=== PATIENT | female | born 1945 | race Caucasian/White ===

== ENCOUNTER 2018-10-25 08:44 | Inpatient (IN) ==
--- NOTE | 2018-10-18 11:01 | PAT Medication Instructions ---
Medication Instructions Date of Service October 18, 2018 Home Medications amlodipine 5 mg PO QAM atorvastatin 10 mg PO QAM calcium carbonate-vitamin D3 1 cap PO BID cephalexin 500 mg PO BID clopidogrel 75 mg PO QAM esomeprazole magnesium 40 mg PO QAM glipizide 2.5 mg PO QAM metformin 500 mg PO BID metoprolol succinate 50 mg PO QAM mirabegron [Myrbetriq] 25 mg PO QPM multivitamin 1 tab PO QAM ranitidine HCl 300 mg PO HS sertraline 50 mg PO QPM Continue as directed cephalexin 500 mg PO BID ASK your prescriber and surgeon clopidogrel 75 mg PO QAM DO NOT take the morning of surgery glipizide 2.5 mg PO QAM metformin 500 mg PO BID multivitamin 1 tab PO QAM Take morning of surgery With a small sip of water, OTHERWISE NOTHING TO EAT OR DRINK AFTER MIDNIGHT: amlodipine 5 mg PO QAM atorvastatin 10 mg PO QAM esomeprazole magnesium 40 mg PO QAM metoprolol succinate 50 mg PO QAM Take evening before surgery calcium carbonate-vitamin D3 1 cap PO BID metformin 500 mg PO BID mirabegron [Myrbetriq] 25 mg PO QPM ranitidine HCl 300 mg PO HS sertraline 50 mg PO QPM Other Notes If you have any questions please call us at [phone] or [phone] or [phone] or [phone]
--- NOTE | 2018-10-18 12:32 | Anesthesiology Consultation ---
Date of Service October 18, 2018 Assessment & Plan (1) Encounter for pre-operative examination: PCP clearance (Baldo) 10/20 = "Patient is medically cleared for surgery. No contraindication for R shoulder surgery at this time." Chart Review Chart Review: Acceptable Risk for Surgery and Patient seen in Pre Admission Testing Teaching & Discussion Instructed NPO after midnight before surgery, except medications with 15 cc of water. Medication instructions provided according to the PAT guidelines. History Surgery Operation Date: 10/25/18 14:00 Proposed Procedures p Right Reversed Total Shoulder Arthroplasty, Biceps Tenodesis - Cayetano Ruth MD Height/Weight Height: 4 ft 11 in Weight: 54.431 kg Allergies Allergy/AdvReac Type Severity Reaction Status Date / Time Penicillins Allergy Mild Unknown Verified 10/13/18 11:11 Medications Home Medications Medication Instructions Recorded Confirmed Last Taken amlodipine 5 mg PO QAM 10/13/18 10/13/18 Unknown atorvastatin 10 mg PO QAM 10/13/18 10/13/18 Unknown calcium carbonate-vitamin D3 1 cap PO BID 10/13/18 10/13/18 Unknown [Calcium 600 + D(3)] cephalexin 500 mg PO BID 10/13/18 10/13/18 Unknown clopidogrel 75 mg PO QAM 10/13/18 10/13/18 Unknown esomeprazole magnesium 40 mg PO QAM 10/13/18 10/13/18 Unknown glipizide 2.5 mg PO QAM 10/13/18 10/13/18 Unknown metformin 500 mg PO BID 10/13/18 10/13/18 Unknown metoprolol succinate 50 mg PO QAM 10/13/18 10/13/18 Unknown mirabegron [Myrbetriq] 25 mg PO QPM 10/13/18 10/13/18 Unknown multivitamin 1 tab PO QAM 10/13/18 10/13/18 Unknown ranitidine HCl 300 mg PO HS 10/13/18 10/13/18 Unknown sertraline 50 mg PO QPM 10/13/18 10/13/18 Unknown Past Medical History Medical History 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 Some speech impairment/cognitive decline--per , were told by [facility] specialist some cognitive decline is to be expected with SCA-6 Depression Diabetes mellitus, type 2 Difficulty swallowing liquids PE - CHOKES ON FOOD - unknown if 2/2 CVA or SCA disorder. Falls frequently PER - D/T ATAXIA ISSUES - patient is primarily wheelchair bound, occasionally stands with support. 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 Onset at age 40. Has seen a neurologist with [facility]. is primary programmer or analyst. Requires assistance with all ADLs. Disease manifests as ataxia, memory and cognitive deficits. Stroke PER - CVA VS. TIA SEVERAL YEARS AGO-hard to assess if long-term deficits 2/2 SCA disorder. On Plavix. Exercise / Class Metabolic Activity IV < 2 Limit ADL/Bedbound (Requires help with toileting, transferring, requires wheelchair most of the time, can stand for short time if supported) Past Family History Family History Other Unknown family medical history Past Surgical History Surgical History History of lumbar surgery Fusion per Hx of cervical discectomy Hx of hysterectomy Past Anesthesia History No Hx of Anesthesia Complications and No Family Hx of Anesthesia Complications History of PONV No Hx of PONV and Hx of Motion Sickness Social History Smoking Status: Never smoker Do You Dip or Chew Tobacco: No Hx Alcohol Use: No Hx Substance Use: No Review of Systems Pt denies any recent chest pain, shortness of breath, palpitations, fever or URI. +mild cough, +UTI, being treated for by PCP Physical Exam Vital Signs BP: 149/93 P: 70bpm SPO2: 95% RA T: 98.4 F R: 16 ENMT Mouth: + dentures (upper); no chipped teeth and no loose teeth Thyromental Distance: < 3.5 Finger Breadths (3) Mallampati Class: II Neck normal visual inspection and + short neck; neck extension not limited Respiratory normal respiratory effort Auscultation: lungs clear to auscultation bilaterally Cardiovascular Rate/Rhythm: regular rate and regular rhythm Heart Sounds: no murmur Vessels: no carotid bruit Extremities: no edema Testing Laboratory Results 10/18/18 12:58 10/18/18 12:58 PT 10.5 Seconds (9.0-12.0) 10/18/18 12:58 INR 1.0 (0.9-1.1) 10/18/18 12:58 APTT 24.8 Seconds (21.0-31.0) 10/18/18 12:58 Hemoglobin A1c 5.9 % (4.5-5.6) H 10/18/18 12:58 Urine Color Yellow 10/18/18 12:58 Urine Appearance Clear (Clear) 10/18/18 12:58 Urine pH 5.5 (4.5-7.5) 10/18/18 12:58 Ur Specific Dyer 1.021 (1.000-1.030) 10/18/18 12:58 Urine Protein Negative (Negative) 10/18/18 12:58 Urine Glucose (UA) 1+ (Negative) H 10/18/18 12:58 Urine Ketones Negative (Negative) 10/18/18 12:58 Urine Nitrite Negative (Negative) 10/18/18 12:58 Ur Leukocyte Esterase Negative (Negative) 10/18/18 12:58 Blood Type B Positive 10/18/18 12:58 Antibody Screen NEGATIVE 10/18/18 12:58 *surgeon's office flagged re: glucose of 237 Electrocardiogram Date: 10/18/18 Findings: + NSR @ (64) Minimal voltage criteria for LVH, may be normal variant. No significant change from 2008 EKG. Chest X-Ray Date: 10/18/18 FINDINGS: Cardiomediastinal and hilar silhouettes are within normal limits. No pneumothorax, large pleural effusion, focal airspace consolidation or overt pulmonary edema. Mild blunting of the left costophrenic angle is likely secondary to atelectasis. Degenerative changes of the shoulders and spine. Cholecystectomy. IMPRESSION: No acute process.
--- NOTE | 2018-10-18 13:44 | XRay Report ---
XR chest Pre-admission PA/Lat HISTORY: 73 years-old Female pat preoperative exam. No acute chest complaints COMPARISON: CT abdomen and pelvis 05/26/2008 TECHNIQUE: Portable upright AP view of the chest FINDINGS: Cardiomediastinal and hilar silhouettes are within normal limits. No pneumothorax, large pleural effu gab, focal airspace consolidation or overt pulmonary edema. Mild blunting of the left costophrenic a ngle is likely secondary to atelectasis. Degenerative changes of the shoulders and spine. Cholecystec letitia. IMPRESSION: No acute process. The above report was generated using voice recognition software. It may contain grammatical, syntax o r spelling errors. Electronically signed by: Josh Brennan M.D. 10/18/2018 1:43 PM
[2018-10-18 14:58] LABS: Basophils # (auto) 0.04 K/uL (0-0.2); Basophils % (auto) 0.7 %; Eosinophils # (auto) 0.09 K/uL (0-0.5); Eosinophils % (auto) 1.6 %; Hematocrit (blood only) 38.9 % (37-47); Hemoglobin 12.7 g/dL (12.0-16.0); Immature Granulocytes # (auto) 0.03 K/uL (0.00-0.02); Immature Granulocytes % (auto) 0.5 %; Lymphocytes # (auto) 1.68 K/uL (1.2-3.4); Mean Corpuscular Hgb Conc 32.6 g/dL (32-36); Mean Corpuscular Volume 93.7 fL (80-100); Mean Platelet Volume 11.4 fL (7.4-10.4); Monocytes # (auto) 0.24 K/uL (0.11-0.59); Monocytes % (auto) 4.3 %; Neutrophils # (auto) 3.52 K/uL (1.4-6.5); Neutrophils % (auto) 62.9 %; Platelet Count 227 K/uL (130-400); RDW Standard Deviation 44.2 fL (36.4-46.3); Red Blood Count 4.15 M/uL (4.2-5.4)
[2018-10-18 15:03] LABS: Appearance Urine Clear (Clear); Bilirubin Urine Negative (Negative); Blood Urine Negative (Negative); Color Urine Yellow; Glucose Urine UA 1+ (Negative); Ketones Urine Negative (Negative); Leukocyte Esterase Urine Negative (Negative); Nitrite Urine Negative (Negative); Protein Urine Negative (Negative); Specific Gravity Urine 1.021 (1.000-1.030); Urobilinogen Urine Negative (Negative); pH Urine 5.5 (4.5-7.5)
[2018-10-18 15:04] LABS: Albumin Level 3.5 gm/dl (3.4-5.0); BUN Creatinine Ratio 14.8 (10-20); Calcium 9.1 mg/dl (8.5-10.1); Creatinine Clr Calc Pharmacy 38.1 ml/min; Est GFR (African American) 67.1; Est GFR (Non-African American) 57.9; Potassium 4.5 mmol/L (3.5-5.1)
[2018-10-18 15:09] LABS: Partial Thromboplastin Ratio 0.9; Partial Thromboplastin Time 24.8 Seconds (21.0-31.0); Prothrombin Time 10.5 Seconds (9.0-12.0)
[2018-10-19 06:05] LABS: Estimated Average Glucose 123 mg/dl; Hemoglobin A1C 5.9 % (4.5-5.6)
--- NOTE | 2018-10-24 21:21 | History and Physical Report ---
DATE OF ADMISSION: 10/25/2018 CHIEF COMPLAINT: Chronic right shoulder pain and weakness. HISTORY OF PRESENT ILLNESS: This is a 73-year-old female patient of Dr. Ruth's c/o chronic right shoulder pain long standing now progressively getting worse. The patient has multiple falls in the recent years and MRI has confirmed rotator cuff tendinopathy and arthritis. The patient wished to proceed with a right reverse shoulder arthroplasty and biceps tenodesis. PAST MEDICAL HISTORY: HTN, anxiety, TIA, DM OA, spine problems, neck problems, acid reflux. PAST SURGICAL HISTORY: Back surgery. FAMILY HISTORY: Noncontributory. REVIEW OF SYSTEMS: Chronic right shoulder pain and weakness. Otherwise, denies any shortness of breath, chest pain, nausea, vomiting or any other joint complaints.. MEDICATIONS: 1. Nexium 40 mg daily. 2. Glipizide 2.5 mg daily. 3. metoprolol 50mg daily. 4. Amlodipine 10 mg daily. 5. Atorvastatin 10 mg daily. 6. Multivitamin daily. 7. Plavix 75 mg daily. 8. Calcium 600 with D daily. 9. Metformin 500 mg. 10. Keflex 500 mg daily. 11. Ranitidine 300 mg daily. 12. Sertraline 50 mg daily. 13. Myrbetriq 25 mg daily. ALLERGIES: PENICILLIN, UNKNOWN REACTION. PHYSICAL EXAMINATION: GENERAL: Well-developed, well-nourished 73-year-old female in no acute distress. She is alert and oriented x3 and pleasant. HEENT: Normocephalic, atraumatic. Extraocular motions are intact. Pupils are equal and reactive to light. HEART: Regular rate and rhythm, no murmurs are appreciated. LUNGS: Clear. ABDOMEN: Soft and nontender, bowel sounds present. EXTREMITIES: Right shoulder reveals active range of motion to 130, passively to 160. She has 3/5 strength globally. She has crepitation with passive range of motion. NEUROLOGIC: Neurovascularly, she is intact in her right upper extremity. DIAGNOSES: Right shoulder chronic rotator cuff tendinopathy, hypertension, anxiety, history of transient ischemic attack, diabetes mellitus, osteoarthritis, spine problems, neck problems and acid reflux. PLAN: The patient was advised of her diagnoses. Indications, risks, benefits, postop course have all been reviewed. Wished to proceed with a right reversed total shoulder arthroplasty and biceps tenodesis. consent and clearances will be obtained. CANDACED
[~2018-10-25 08:44] MED LIST: ACETAMINOPHEN 500 MG TAB PO SCH; CeleBREX 200 MG CAP PO SCH; FAMOTIDINE 20 MG TAB PO SCH; GABAPENTIN 300 MG CAP PO SCH; LR 15ML/HR IV SCH; METOCLOPRAMIDE HCL 10 MG TABLET PO SCH; ROPIVACAINE 0.5% 5 MG/ML 30 ML VIAL ONE; VANCOMYCIN HCL 1,000 MG/270 ML BAG IV SCH; dexAMETHasone 4 MG TAB PO SCH
--- NOTE | 2018-10-25 09:31 | History & Physical Bridge Note ---
Date of Service October 25, 2018 History & Physical Bridge Note I have examined the patient, reviewed the History & Physical and in the interval since the performance of the History & Physical I have noted the following changes of clinical significance: no changes noted
[2018-10-25] MEDS ORDERED: LIDOCAINE HCL 2% 2 ML VIAL/AMP(20MG/ML) INFIL ONE (09:51)
[2018-10-25] MEDS ORDERED: BACITRACIN INJ 50,000 UNIT VIAL ONE (09:51)
[2018-10-25] MEDS ORDERED: fentaNYL citrate 100 MCG/2 ML VIAL ONE (09:52)
[2018-10-25] MEDS ORDERED: PROPOFOL IV EMULSION 10 MG/ML 20 ML VIAL IV ONE (09:52)
[2018-10-25] MEDS ORDERED: MIDAZOLAM HCL 1 MG/ML 2ML VIAL ONE (09:52)
[2018-10-25] MEDS ORDERED: ROCURONIUM BROMIDE 10 MG/ML 5 ML VIAL ONE ×3 (09:53→13:05)
[2018-10-25] MEDS ORDERED: ONDANSETRON INJ 2 MG/ML 2 ML VIAL ONE (09:54)
[2018-10-25] MEDS ORDERED: DEXAMETHASONE SOD INJ 4 MG/ML VIAL ONE (09:54)
[2018-10-25] MEDS ORDERED: ONDANSETRON INJ 2 MG/ML 2 ML VIAL IV PRN ×2 (10:49→16:58)
[2018-10-25] MEDS ORDERED: fentaNYL citrate 100 MCG/2 ML VIAL IV PRN (10:49)
[2018-10-25] MEDS ORDERED: ePHEDrine sulfate 50 MG/ML AMP IV PRN (10:49)
[2018-10-25] MEDS ORDERED: ATROPINE SULFATE 0.1 MG/ML 10ML SYR IV PRN (10:49)
[2018-10-25] MEDS ORDERED: NEOSTIGMINE METHYLSULFATE 5 MG/5 ML SYR ONE (12:27)
[2018-10-25] MEDS ORDERED: GLYCOPYRROLATE 0.2 MG/ML VIAL ONE (12:27)
[2018-10-25] MEDS ORDERED: ePHEDrine sulfate 50 MG/ML AMP ONE (14:09)
--- NOTE | 2018-10-25 14:42 | Post Operative Brief Note ---
Immediate Post Op Note v1 Date of Surgery October 25, 2018 Pre & Post Diagnosis Operation Date: 10/25/18 11:30 Pre-Op Diagnosis: Right Shoulder end stage osteoarthritic chronic rotator cuff tear and biceps tendinopathy Post-Op Diagnosis: same loose body biceps tendon sheath Procedure Operation Date: 10/25/18 11:30 Actual Procedures p Right Reversed Total Shoulder Arthroplasty, Biceps Tenodesis(Right),removal loose body - Cayetano Ruth MD Surgeon Cayetano Ruth MD Central Office Equipment Installer Fabiano ROGERS Estimated Blood Loss 75 Findings Consistent with Post-Op Diagnosis Specimens humeral head Drains Hemovac Drain Anesthesia Type General Regional Disposition Accompanied Patient To Recovery: No Disposition: Recovery Room Overlapping Procedure I was present for: the critical portions of procedure.
--- NOTE | 2018-10-25 15:33 | XRay Report ---
RIGHT SHOULDER 2 VIEWS CLINICAL HISTORY: Postoperative examination. FINDINGS: 2 portable views of the right shoulder are obtained. The skeletal structures are osteopenic . A right shoulder arthroplasty is in near-anatomic alignment. No acute fracture is seen. Productive degenerative change is noted at the acromioclavicular joint. There are expected postoperative finding s overlying the right shoulder including skin clips, subcutaneous gas, soft tissue swelling, and a waters rgical drain. The visualized right lung parenchyma appears clear. IMPRESSION: Expected postoperative findings status post right shoulder arthroplasty. No fracture is s een. Electronically signed by: Lj Rodriguez M.D. 10/25/2018 3:32 PM
[2018-10-25] MEDS ORDERED: MAGNESIUM HYDROXIDE SUSP 30 ML UDC PO PRN (16:58)
[2018-10-25] MEDS ORDERED: BISACODYL 10 MG SUPP PR PRN (16:58)
[2018-10-25] MEDS ORDERED: VANCOMYCIN CONSULT ACTIVE PRN (16:58)
[2018-10-25] MEDS ORDERED: HYDROmorphone INJ 0.5 MG/0.5 ML SYR IV PRN (16:58)
[2018-10-25] MEDS ORDERED: NALOXONE HCL 0.4 MG/1 ML VIAL/CARP IV PRN (16:58)
[2018-10-25] MEDS ORDERED: SODIUM CHLORIDE 0.9% 1000ML 1,000 ML IV SCH (16:58)
--- NOTE | 2018-10-25 19:40 | Anesthesiology Progress Note ---
Date of Service October 25, 2018 Anesthesia Post Procedure Vital Signs Vital Signs: Temp Pulse Pulse Pulse Pulse Resp BP 10/25/18 18:47 36.7 C 64 17 10/25/18 17:40 36.7 C 65 16 10/25/18 17:10 36.2 C L 65 15 10/25/18 16:40 36.5 C 58 L 14 10/25/18 16:15 56 L 15 10/25/18 16:05 36.2 C L 54 L 16 10/25/18 16:00 36.2 C L 57 L 19 116/63 10/25/18 15:56 55 L 18 10/25/18 15:55 54 L 17 123/64 10/25/18 15:51 60 17 115/61 10/25/18 15:50 55 L 18 10/25/18 15:46 69 27 H 10/25/18 15:45 56 L 19 129/66 10/25/18 15:40 56 L 19 118/65 10/25/18 15:35 56 L 18 131/69 10/25/18 15:31 58 L 27 H 10/25/18 15:30 59 L 18 131/69 10/25/18 15:25 60 19 141/78 H 10/25/18 15:21 64 19 10/25/18 15:20 65 19 131/70 10/25/18 15:15 66 20 128/70 10/25/18 15:10 67 17 138/71 10/25/18 15:06 68 17 10/25/18 15:05 68 18 139/77 10/25/18 15:00 70 19 131/77 10/25/18 14:56 72 20 10/25/18 14:55 36.1 C L 63 71 21 153/80 H 10/25/18 14:54 101 H 10/25/18 09:26 36.9 C 65 16 BP BP Pulse Ox 10/25/18 18:47 109/73 97 10/25/18 17:40 106/71 98 10/25/18 17:10 107/61 98 10/25/18 16:40 117/65 96 10/25/18 16:15 114/57 L 98 10/25/18 16:05 153/80 H 99 10/25/18 16:00 99 10/25/18 15:56 100 10/25/18 15:55 98 10/25/18 15:51 94 10/25/18 15:50 98 10/25/18 15:46 99 10/25/18 15:45 99 10/25/18 15:40 99 10/25/18 15:35 100 10/25/18 15:31 99 10/25/18 15:30 100 10/25/18 15:25 99 10/25/18 15:21 100 10/25/18 15:20 100 10/25/18 15:15 100 10/25/18 15:10 100 10/25/18 15:06 99 10/25/18 15:05 99 10/25/18 15:00 99 10/25/18 14:56 98 10/25/18 14:55 153/80 H 98 10/25/18 14:54 10/25/18 09:26 162/75 H 94 Pain Intensity Right Shoulder: Pain Intensity: 6 Transfer of Care Handoff Completed per policy Notes Mental Status: alert / awake / arousable Patient Amnestic to Procedure: Yes Nausea / Vomiting: adequately controlled Pain: adequately controlled Airway Patency, RR, SpO2: stable & adequate BP & HR: stable & adequate Hydration State: stable & adequate Anesthetic Complications: no major complications apparent
--- NOTE | 2018-10-25 19:51 | Operative Report ---
Post Operative Report Pre & Post Diagnosis Operation Date: 10/25/18 11:30 Pre-Op Diagnosis: Right shoulder end-stage osteoarthritis glenohumeral joint, chronic rotator cuff tear with rotator cuff arthropathy, biceps tenosynovitis Post-Op Diagnosis: Same including loose body biceps tendon sheath. Procedure Operation Date: 10/25/18 11:30 Actual Procedures p Right Reversed Total Shoulder Arthroplasty, Biceps Tenodesis(Right) including removal loose body- Cayetano Ruth MD Surgeon Cayetano Ruth MD Speedboat Driver Fabiano ROGERS Estimated Blood Loss 75 Findings Consistent with Post-Op Diagnosis Specimens Humeral head Drains 2 Hemovac Anesthesia Type General Regional Complications none Disposition Accompanied Patient To Recovery: No Disposition: Recovery Room Indications 73-year-old female with chronic right shoulder pain failed conservative management. X-rays and MRI demonstrates advanced osteoarthritis glenohumeral joint some pseudosubluxation of the shoulder. She has a large chronic rotator cuff tear and biceps tenosynovitis. Description of Procedure The patient was taken to the operating room and anesthetized under regional block and general anesthetic. The patient was positioned on the operating table in a 30 beachchair position with a towel roll under the medial border of the right scapula. The arm was draped free to be able to manipulate the shoulder as needed. The right upper extremity was prepped and draped in usual sterile fashion. Exam demonstrated mild obesity of the arm. Forward elevation to 130 degrees abduction to 80 degrees and external rotation to 35 degrees. An anterior deltopectoral approach was performed. A longitudinal incision was made in the deltopectoral interval. The skin was incised sharply. Subcutaneous flaps were elevated off the fascia. The cephalic vein was dissected out and retracted lateral with the deltoid. The clavipectoral fascia was divided at the lateral margin of the conjoined tendon and extended up to the CA ligament. The following findings were noted there was significant subacromial bursitis. The subscapularis tendon was intact the supraspinatus was torn retracted. There were large bone spurs near the supraspinatus attachment site. There was significant biceps tendinopathy including loose body about 6 mm diameter and a biceps tendon sheath. The upper centimeter of the pectoralis was released for inferior exposure. the biceps tendon was tenodesed to the pectoralis tendon with #2 FiberWire. The proximal biceps was resected. The subscapularis tendon was taken down off the lesser tuberosity using a subperiosteal dissection. A #1 Vicryl traction suture was placed into the free end of the subscapularis tendon and capsule. The subscapular muscle fibers were split longitudinally at the level of the circumflex vessels. The circumflex vessels were identified and tied off with silk ties and divided laterally. A Kitner elevator was used to free up the inferior fibers of the subscapularis off of the capsule. The axillary nerve was identified with a tug test and protected with a blunt Rebecca retractor between the nerve and the capsule. The subscapularis tendon was then taken down off of the lesser tuberosity subperiosteally and subperiosteal dissection was performed along the neck of the humerus as the arm is gradually actually rotated exposing the humeral head. Retractors were readjusted and the inferior osteophytes were all resected using an artist chisel. A Ho elevator was used to assist in releasing the capsule of the neck of the humerus. The capsule was divided with Leong scissors down to the glenoid released off the anterior glenoid and the rotator interval was released to meet the capsular release and a 360 release of the subscapularis was accomplished. A Fukuda retractor was placed into the joint retracting the humeral head posterior. Glenoid findings demonstrated grade 4 DJD upper superior aspect of the glenoid. The labrum and biceps tendon was resected. an anterior-inferior and posterior inferior capsular release were performed with electrocautery and a Ho elevator on bone with the axillary nerve protected inferiorly by the retractor. Attention was then taken to the humeral preparation. The cutting guide was placed into the humeral head. It was positioned at 20 of retroversion. Oscillating saw was used to resect the humeral head giving the cut above the level of the posterior rotator cuff insertion site. The humerus was then prepared for the stem. I used the ascend flex stem from [employer]. The sizing broaches were used followed by trial broaches up to a size 2B long which had the appropriate fit and fill. The appropriate sized cut protector was placed. The humerus was then retracted posterior to the glenoid. The glenoid was sized for a 25. The guide for the baseplate was positioned in a 10 inferior tilt and the central drill hole was made. The reamer for the 25 baseplate was used. The central drill was widened for the peg. The 25 aequalis CESPEDES-coated baseplate was impacted into position. The base plate was transfixed with superior and inferior locking screws and anterior and posterior compression screws with stable fixation. The fan reamer was used for the 36 millimeter glenoid sphere. After irrigation the 36 glenoid sphere was impacted onto the baseplate and the screw was tightened. Attention was taken back to the humerus. The cut protector was removed and the +0 high offset humeral tray trial was assembled to the trial stem rotated appropriately to get bony coverage and then screwed in position. A trial reduction was performed. A +6 trial insert demonstrated good stability and no shuck. The trials were removed. 3 drill holes are made into the harder bone in the bicipital groove area and 3 #5 FiberWire sutures were placed transosseously. The canal was irrigated with antibiotic solution with bacitracin. The final component was assembled. The final component was 2B long PTC ascend flex stem +0 high offset tray 36+6 poly-insert. This was then impacted into the humerus with a tight press-fit. It was reduced to the glenoid sphere. Stability was verified. Subscapularis was repaired with the #5 FiberWire sutures using Humberto- Piero suture technique. Lateral row soft tissue repair was performed with #2 FiberWire [id number] sutures. The pectoralis was repaired with #2 FiberWire [id number] sutures reinforcing the biceps tendon tenodesis. The arm was taken through a range of motion which demonstrated 120 degrees forward elevation 90 degrees abduction 20 degrees external rotation without tension on repair. The implant was stable through the range of motion tested. The wound was copiously irrigated. 2 Hemovac drains were placed. The deltopectoral interval was closed with [id number] #1 Vicryl sutures. The subcutaneous tissues were closed with 2-0 Vicryl sutures. The skin was closed with dylan. Sterile dressings were applied and a shoulder immobilizer. Fabiano ROGERS my physician butcher's assistant assisted in the procedure to the entire procedure including patient positioning arm positioning prepping and draping soft tissue retraction instrument management suture management and performed the subcutaneous and skin closure and will participate in the postoperative care of the patient. I attest to the content of the Intraoperative Record and any orders documented therein. Any exceptions are noted below.
[2018-10-25] MEDS ORDERED: GLUCOSE 40% GEL 15 GM TUBE PO PRN ×2 (20:14→21:17)
[2018-10-25] MEDS ORDERED: GLUCOSE 10 TABS/TUBE PO PRN ×2 (20:14→21:17)
[2018-10-25] MEDS ORDERED: DEXTROSE 50% 50 ML SYRINGE IV PRN ×2 (20:14→21:17)
[2018-10-25] MEDS ORDERED: CARBOHYDRATES FOR HYPOGLYCEMIA PO PRN ×2 (20:14→21:17)
[2018-10-25] MEDS ORDERED: GLUCAGON FOR INJ 1 MG VIAL SQ PRN ×2 (20:14→21:17)
[2018-10-25] MEDS ORDERED: INSULIN GLARGINE SOLOSTAR 100 UNITS/ML 3 ML PEN SC SCH (21:00)
[2018-10-25] MEDS ORDERED: VANCOMYCIN HCL 750 MG in SODIUM CHLORIDE 0.9% 250 ML IV SCH (21:00)
[2018-10-25] MEDS ORDERED: INSULIN ASPART 100 UNITS/ML 3 ML PEN SC SCH ×2 (21:00→21:20)
[2018-10-25] MEDS ORDERED: INSULIN GLARGINE SOLOSTAR 100 UNITS/ML 3 ML PEN SQ STA (21:15)
--- NOTE | 2018-10-25 21:56 | Hospitalist Consultation ---
Date of Consultation October 25, 2018 Assessment & Plan (1) Status post shoulder surgery: Final Assessment and Recommendations as follows : Encephalopathy Patient somewhat confused postop. ? Baseline Postop hypotension TIA as per records, spinocerebellar ataxia as per records Postop anemia DM2 on oral meds Postop hyperglycemia secondary to perioperative steroids Recent outpatient hemoglobin A1c for this month showed good control at 5.9 IVF bolus Check lactic acid Hold antihypertensives for now Trend H&H, transfuse PRBC if hemoglobin less than 8 (hx TIA as per records) basal insulin, ISS BG goal, 1 40-1 80, carb count coverage Hold parameters for neuropsychotropic meds for sedation and confusion DVT prophylaxis as per postop orthopedic orders Thank you very much for this consultation. Dr. So will follow patient's progress. History of Present Illness Reason for Consultation: Medical management Requesting Physician: Dr. Ruth/Fabiano Steward PA-C Attending Physician: Cayetano Ruth MD History of Present Illness PCP; Martínez Nickerson PA-C History obtained from patient and records. Limited history from patient secondary to postop disorientation and language barrier. Medical history significant for hypertension, hyperlipidemia, TIA as per records, spinocerebellar ataxia as per records, DM2 on oral meds, GERD. Recent confinement 2008 for colitis. Patient underwent right shoulder surgery today for osteoarthritis. Postop pain tolerable as per patient. Postop SBP currently 90s. Postop BSG is in the 200s. Medical History as above Surgical History : Back surgery, shoulder surgery, cholecystectomy, hysterectomy, section Family History : Could not be obtained Personal/Social history : Non-smoker, no EtOH intake, lives with Allergies Allergy/AdvReac Type Severity Reaction Status Date / Time Penicillins Allergy Mild Unknown Verified 10/13/18 11:11 Home Medications Home Medications Medication Instructions Recorded Confirmed Type amlodipine 5 mg PO QAM 10/13/18 10/25/18 History atorvastatin 10 mg PO QAM 10/13/18 10/13/18 History calcium carbonate-vitamin D3 1 cap PO BID 10/13/18 10/13/18 History [Calcium 600 + D(3)] cephalexin 500 mg PO BID 10/13/18 10/25/18 History clopidogrel 75 mg PO QAM 10/13/18 10/25/18 History esomeprazole magnesium 40 mg PO QAM 10/13/18 10/13/18 History glipizide 2.5 mg PO QAM 10/13/18 10/25/18 History metformin 500 mg PO BID 10/13/18 10/13/18 History metoprolol succinate 50 mg PO QAM 10/13/18 10/13/18 History mirabegron [Myrbetriq] 25 mg PO QPM 10/13/18 10/13/18 History multivitamin 1 tab PO QAM 10/13/18 10/13/18 History ranitidine HCl 300 mg PO HS 10/13/18 10/13/18 History sertraline 50 mg PO QPM 10/13/18 10/25/18 History Patient History Medical History 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 Some speech impairment/cognitive decline--per , were told by [facility] specialist some cognitive decline is to be expected with SCA-6 Depression Diabetes mellitus, type 2 Difficulty swallowing liquids PE - CHOKES ON FOOD - unknown if 2/2 CVA or SCA disorder. Falls frequently PER - D/T ATAXIA ISSUES - patient is primarily wheelchair bound, occasionally stands with support. 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 Onset at age 40. Has seen a neurologist with [facility]. is primary librarian helper. Requires assistance with all ADLs. Disease manifests as ataxia, memory and cognitive deficits. Stroke PER - CVA VS. TIA SEVERAL YEARS AGO-hard to assess if long-term deficits 2/2 SCA disorder. On Plavix. Surgical History History of lumbar surgery Fusion per Hx of cervical discectomy Hx of hysterectomy Family History Other Unknown family medical history Social History Preferred Language: Sinhala Communication Ability: Effective Beliefs That Will Affect Care: None Current Living Situation: Spouse Feels Safe at Home: Yes Safety Concerns: Feels Safe At This Time Smoking Status: Never smoker Do You Dip or Chew Tobacco: No Second Hand Exposure: No Hx Alcohol Use: No Hx Substance Use: No Review of Systems Review of Systems: Could not be reliably obtained Physical Exam Physical Exam: GENERAL: Comfortable, pleasant, disoriented, wane, no respiratory distress SKIN: Pallor , warm HEENT: pale palpebral conjunctivae, no ptosis, dry buccal mucosa NECK : Supple, short neck, no tenderness CHEST : Decreased effort , no tenderness HEART : RRR, no obvious murmurs ABDOMEN: Some distention, nontender EXTREMITIES : Sling on the right upper extremity , no LE swelling/tenderness NEUROLOGIC : Disoriented, slightly hard of hearing no facial asymmetry, gait and stance not assessed Results & Data Vital Signs (Past 12 Hours) Vital Signs Temp Pulse Pulse Pulse Resp BP BP 10/25/18 19:40 36.9 C 63 16 97/62 L 10/25/18 18:47 36.7 C 64 17 109/73 10/25/18 17:40 36.7 C 65 16 106/71 10/25/18 17:10 36.2 C L 65 15 107/61 10/25/18 16:40 36.5 C 58 L 14 117/65 10/25/18 16:15 56 L 15 10/25/18 16:05 36.2 C L 54 L 16 10/25/18 16:00 36.2 C L 57 L 19 116/63 10/25/18 15:56 55 L 18 10/25/18 15:55 54 L 17 123/64 10/25/18 15:51 60 17 115/61 10/25/18 15:50 55 L 18 10/25/18 15:46 69 27 H 10/25/18 15:45 56 L 19 129/66 10/25/18 15:40 56 L 19 118/65 10/25/18 15:35 56 L 18 131/69 10/25/18 15:31 58 L 27 H 10/25/18 15:30 59 L 18 131/69 10/25/18 15:25 60 19 141/78 H 10/25/18 15:21 64 19 10/25/18 15:20 65 19 131/70 10/25/18 15:15 66 20 128/70 10/25/18 15:10 67 17 138/71 10/25/18 15:06 68 17 10/25/18 15:05 68 18 139/77 10/25/18 15:00 70 19 131/77 10/25/18 14:56 72 20 10/25/18 14:55 36.1 C L 63 71 21 153/80 H 10/25/18 14:54 101 H BP Pulse Ox 10/25/18 19:40 97 10/25/18 18:47 97 10/25/18 17:40 98 10/25/18 17:10 98 10/25/18 16:40 96 10/25/18 16:15 114/57 L 98 10/25/18 16:05 153/80 H 99 10/25/18 16:00 99 10/25/18 15:56 100 10/25/18 15:55 98 10/25/18 15:51 94 10/25/18 15:50 98 10/25/18 15:46 99 10/25/18 15:45 99 10/25/18 15:40 99 10/25/18 15:35 100 10/25/18 15:31 99 10/25/18 15:30 100 10/25/18 15:25 99 10/25/18 15:21 100 10/25/18 15:20 100 10/25/18 15:15 100 10/25/18 15:10 100 10/25/18 15:06 99 10/25/18 15:05 99 10/25/18 15:00 99 10/25/18 14:56 98 10/25/18 14:55 153/80 H 98 10/25/18 14:54 Laboratory Results Laboratory Results WBC 5.60 K/uL (4.8-10.8) 10/18/18 12:58 RBC 4.15 M/uL (4.2-5.4) L 10/18/18 12:58 Hgb 12.7 g/dL (12.0-16.0) 10/18/18 12:58 Hct 38.9 % (37-47) 10/18/18 12:58 MCV 93.7 fL (80-100) 10/18/18 12:58 MCH 30.6 pg (25-34) 10/18/18 12:58 MCHC 32.6 g/dL (32-36) 10/18/18 12:58 RDW Std Deviation 44.2 fL (36.4-46.3) 10/18/18 12:58 RDW Coeff of Debbie 13.0 % (11.5-14.5) 10/18/18 12:58 Plt Count 227 K/uL (130-400) 10/18/18 12:58 MPV 11.4 fL (7.4-10.4) H 10/18/18 12:58 Immature Gran % (Auto) 0.5 % 10/18/18 12:58 Neut % (Auto) 62.9 % 10/18/18 12:58 Lymph % (Auto) 30.0 % 10/18/18 12:58 Mora % (Auto) 4.3 % 10/18/18 12:58 Eos % (Auto) 1.6 % 10/18/18 12:58 Baso % (Auto) 0.7 % 10/18/18 12:58 Immature Gran # (Auto) 0.03 K/uL (0.00-0.02) H 10/18/18 12:58 Neut # (Auto) 3.52 K/uL (1.4-6.5) 10/18/18 12:58 Lymph # (Auto) 1.68 K/uL (1.2-3.4) 10/18/18 12:58 Mora # (Auto) 0.24 K/uL (0.11-0.59) 10/18/18 12:58 Eos # (Auto) 0.09 K/uL (0-0.5) 10/18/18 12:58 Baso # (Auto) 0.04 K/uL (0-0.2) 10/18/18 12:58 PT 10.5 Seconds (9.0-12.0) 10/18/18 12:58 INR 1.0 (0.9-1.1) 10/18/18 12:58 APTT 24.8 Seconds (21.0-31.0) 10/18/18 12:58 PTT Ratio 0.9 10/18/18 12:58 Sodium 145 mmol/L (136-145) 10/18/18 12:58 Potassium 4.5 mmol/L (3.5-5.1) 10/18/18 12:58 Chloride 109 mmol/L (98-107) H 10/18/18 12:58 Carbon Dioxide 30 mmol/L (21-32) 10/18/18 12:58 Anion Gap 6.0 (3-11) 10/18/18 12:58 BUN 14 mg/dl (7-18) 10/18/18 12:58 Creatinine 0.96 mg/dl (0.6-1.2) 10/18/18 12:58 Est Cr Clr Drug Dosing 38.1 ml/min 10/18/18 12:58 Est GFR ( Amer) 67.1 10/18/18 12:58 Est GFR (Non-Af Amer) 57.9 10/18/18 12:58 BUN/Creatinine Ratio 14.8 (10-20) 10/18/18 12:58 Glucose 237 mg/dl (70-99) H 10/18/18 12:58 POC Glucose 295 (70-99) H 10/25/18 20:58 Estimat Average Glucose 123 mg/dl 10/18/18 12:58 Hemoglobin A1c 5.9 % (4.5-5.6) H 10/18/18 12:58 Calcium 9.1 mg/dl (8.5-10.1) 10/18/18 12:58 Albumin 3.5 gm/dl (3.4-5.0) 10/18/18 12:58 Urine Color Yellow 10/18/18 12:58 Urine Appearance Clear (Clear) 10/18/18 12:58 Urine pH 5.5 (4.5-7.5) 10/18/18 12:58 Ur Specific [place] 1.021 (1.000-1.030) 10/18/18 12:58 Urine Protein Negative (Negative) 10/18/18 12:58 Urine Glucose (UA) 1+ (Negative) H 10/18/18 12:58 Urine Ketones Negative (Negative) 10/18/18 12:58 Urine Blood Negative (Negative) 10/18/18 12:58 Urine Nitrite Negative (Negative) 10/18/18 12:58 Urine Bilirubin Negative (Negative) 10/18/18 12:58 Urine Urobilinogen Negative (Negative) 10/18/18 12:58 Ur Leukocyte Esterase Negative (Negative) 10/18/18 12:58 Blood Type B Positive 10/18/18 12:58 Antibody Screen NEGATIVE 10/18/18 12:58
[2018-10-25 22:05] LABS: Hematocrit (blood only) 32.4 % (37-47); Hemoglobin 10.6 g/dL (12.0-16.0)
[2018-10-25] MEDS: MIRABEGRON ER 25 MG TAB PO SCH (22:07)
[2018-10-25] MEDS: SENNA 8.6 MG TAB PO SCH (22:07)
[2018-10-25] MEDS: SERTRALINE HCL 50 MG TABLET PO SCH (22:07)
[2018-10-25] MEDS: CALCIUM 600MG + VIT D 400 IU TAB PO SCH (22:07)
[2018-10-25] MEDS: ACETAMINOPHEN 500 MG TAB PO SCH (22:08)
[2018-10-25] MEDS: DOCUSATE SODIUM 100 MG CAP PO SCH (22:08)
[2018-10-25 22:23] LABS: BUN Creatinine Ratio 18.2 (10-20); Calcium 8.4 mg/dl (8.5-10.1); Est GFR (African American) 51.7; Est GFR (Non-African American) 44.6; Magnesium 1.8 mg/dl (1.8-2.4); Potassium 4.7 mmol/L (3.5-5.1)
[2018-10-25] MEDS ORDERED: SODIUM CHLORIDE 0.9% 1000ML 1,000 ML IV ONE (22:59)
[2018-10-25] MEDS ORDERED: MAGNESIUM SULFATE / D5W 1 GM/100 ML BAG IV ONE (23:15)
[2018-10-26] MEDS ORDERED: SODIUM CHLORIDE 0.9% 1000ML 1,000 ML IV SCH
[2018-10-26 00:53] LABS: Appearance Urine Clear (Clear); Bilirubin Urine Negative (Negative); Blood Urine Negative (Negative); Color Urine Yellow; Glucose Urine UA Trace (Negative); Ketones Urine Negative (Negative); Leukocyte Esterase Urine Negative (Negative); Nitrite Urine Negative (Negative); Protein Urine Negative (Negative); Specific Gravity Urine 1.015 (1.000-1.030); Urobilinogen Urine Negative (Negative)
[2018-10-26] MEDS: OXYCODONE HCL IR 5 MG TAB (IMMEDIATE RELEASE) PO PRN ×3 (01:03→19:27)
[2018-10-26 02:12] LABS: Basophils # (auto) 0.01 K/uL (0-0.2); Basophils % (auto) 0.1 %; Hematocrit (blood only) 27.8 % (37-47); Hemoglobin 9.2 g/dL (12.0-16.0); Immature Granulocytes # (auto) 0.03 K/uL (0.00-0.02); Immature Granulocytes % (auto) 0.3 %; Lymphocytes # (auto) 0.97 K/uL (1.2-3.4); Lymphocytes % (auto) 10.7 %; Mean Corpuscular Hgb Conc 33.1 g/dL (32-36); Mean Corpuscular Volume 90.6 fL (80-100); Mean Platelet Volume 10.6 fL (7.4-10.4); Monocytes # (auto) 0.89 K/uL (0.11-0.59); Monocytes % (auto) 9.8 %; Neutrophils % (auto) 79.1 %; Platelet Count 179 K/uL (130-400); RDW Coefficient of Variation 13.1 % (11.5-14.5); RDW Standard Deviation 42.9 fL (36.4-46.3); Red Blood Count 3.07 M/uL (4.2-5.4)
[2018-10-26] MEDS ORDERED: SODIUM CHLORIDE 0.9% 1000ML 1,000 ML IV ONE (02:37)
[2018-10-26] MEDS ORDERED: INSULIN GLARGINE SOLOSTAR 100 UNITS/ML 3 ML PEN SC STA (03:45)
[2018-10-26] MEDS: SODIUM CHLORIDE 0.9% 1000ML 1,000 ML IV SCH ×2 (03:57→05:41)
[2018-10-26] MEDS: INSULIN ASPART 100 UNITS/ML 3 ML PEN SC SCH ×5 (04:02→21:00)
[2018-10-26] MEDS: ACETAMINOPHEN 500 MG TAB PO SCH ×3 (05:41→21:00)
[2018-10-26] MEDS ORDERED: SODIUM CHLORIDE 0.9% 1000ML 1,000 ML IV STA (06:30)
[2018-10-26 06:38] LABS: Hematocrit (blood only) 27.4 % (37-47)
--- NOTE | 2018-10-26 08:19 | Orthopedic Progress Note ---
Date of Service October 26, 2018 Assessment & Plan (1) Status post shoulder surgery: POD #1, Right reversed TSA, Biceps tenodesis Limited PT/ OT D/C planning- Home w HEP As per medicine- Anemia 9.0 this AM, checking lactic acid- high at 2.3 this AM. Subjective POD #1, Pain is main issue, denies SOB, CP, N/V. Physical Exam Physical Exam: Right shoulder dressings c/d/i, no drainage, fingers mobile, sling in tact. Results & Data Vital Signs (Past 12 Hours) Vital Signs Temp Pulse Resp BP Pulse Ox 10/26/18 07:15 36.7 C 63 16 109/62 98 10/26/18 04:07 36.6 C 68 15 109/69 96 10/26/18 02:05 37.1 C 66 15 97/62 L 96 10/25/18 23:36 36.7 C 65 15 92/59 L 96
--- NOTE | 2018-10-26 08:27 | Anesthesiology Progress Note ---
Date of Service October 26, 2018 Anesthesia Post Procedure Vital Signs Vital Signs: Temp Pulse Pulse Pulse Pulse Resp BP 10/26/18 07:15 36.7 C 63 16 10/26/18 04:07 36.6 C 68 15 10/26/18 02:05 37.1 C 66 15 10/25/18 23:36 36.7 C 65 15 10/25/18 19:40 36.9 C 63 16 10/25/18 18:47 36.7 C 64 17 10/25/18 17:40 36.7 C 65 16 10/25/18 17:10 36.2 C L 65 15 10/25/18 16:40 36.5 C 58 L 14 10/25/18 16:15 56 L 15 10/25/18 16:05 36.2 C L 54 L 16 10/25/18 16:00 36.2 C L 57 L 19 116/63 10/25/18 15:56 55 L 18 10/25/18 15:55 54 L 17 123/64 10/25/18 15:51 60 17 115/61 10/25/18 15:50 55 L 18 10/25/18 15:46 69 27 H 10/25/18 15:45 56 L 19 129/66 10/25/18 15:40 56 L 19 118/65 10/25/18 15:35 56 L 18 131/69 10/25/18 15:31 58 L 27 H 10/25/18 15:30 59 L 18 131/69 10/25/18 15:25 60 19 141/78 H 10/25/18 15:21 64 19 10/25/18 15:20 65 19 131/70 10/25/18 15:15 66 20 128/70 10/25/18 15:10 67 17 138/71 10/25/18 15:06 68 17 10/25/18 15:05 68 18 139/77 10/25/18 15:00 70 19 131/77 10/25/18 14:56 72 20 10/25/18 14:55 36.1 C L 63 71 21 153/80 H 10/25/18 14:54 101 H 10/25/18 09:26 36.9 C 65 16 BP BP Pulse Ox 10/26/18 07:15 109/62 98 10/26/18 04:07 109/69 96 10/26/18 02:05 97/62 L 96 10/25/18 23:36 92/59 L 96 10/25/18 19:40 97/62 L 97 10/25/18 18:47 109/73 97 10/25/18 17:40 106/71 98 10/25/18 17:10 107/61 98 10/25/18 16:40 117/65 96 10/25/18 16:15 114/57 L 98 10/25/18 16:05 153/80 H 99 10/25/18 16:00 99 10/25/18 15:56 100 10/25/18 15:55 98 10/25/18 15:51 94 10/25/18 15:50 98 10/25/18 15:46 99 10/25/18 15:45 99 10/25/18 15:40 99 10/25/18 15:35 100 10/25/18 15:31 99 10/25/18 15:30 100 10/25/18 15:25 99 10/25/18 15:21 100 10/25/18 15:20 100 10/25/18 15:15 100 10/25/18 15:10 100 10/25/18 15:06 99 10/25/18 15:05 99 10/25/18 15:00 99 10/25/18 14:56 98 10/25/18 14:55 153/80 H 98 10/25/18 14:54 10/25/18 09:26 162/75 H 94 Pain Intensity Right Shoulder: Pain Intensity: 6 Notes Mental Status: alert / awake / arousable Patient Amnestic to Procedure: No Nausea / Vomiting: adequately controlled Pain: adequately controlled Airway Patency, RR, SpO2: stable & adequate BP & HR: stable & adequate Hydration State: stable & adequate Neuraxial Anesthesia: was administered and sensory block resolved Anesthetic Complications: no major complications apparent and Pt Satisfied with anesthetic care
[2018-10-26 08:57] LABS: BUN Creatinine Ratio 17.5 (10-20); Calcium 7.3 mg/dl (8.5-10.1); Est GFR (African American) 81.1; Potassium 3.9 mmol/L (3.5-5.1)
[2018-10-26] MEDS ORDERED: AMLODIPINE BESYLATE 5 MG TAB PO SCH (09:00)
[2018-10-26] MEDS ORDERED: METOPROLOL SUCC 25MG EXT REL TAB PO SCH (09:00)
[2018-10-26] MEDS ORDERED: METOPROLOL SUCC 50MG EXT REL TAB PO SCH (09:00)
[2018-10-26] MEDS: ATORVASTATIN 10 MG TAB PO SCH (09:21)
[2018-10-26] MEDS: DOCUSATE SODIUM 100 MG CAP PO SCH ×2 (09:21→20:58)
[2018-10-26] MEDS: PANTOprazole 40 MG TAB PO SCH (09:21)
[2018-10-26] MEDS: MULTIVITAMIN TAB PO SCH (09:21)
[2018-10-26] MEDS: CALCIUM 600MG + VIT D 400 IU TAB PO SCH ×2 (09:21→20:58)
[2018-10-26] MEDS: CLOPIDOGREL BISULFATE 75 MG TAB PO SCH (09:22)
--- NOTE | 2018-10-26 10:13 | Hospitalist Progress Note ---
Date of Service October 26, 2018 Assessment & Plan (1) Status post shoulder surgery: POD#1 s/p procedure by Dr. Ruth Feeling better today, confusion has resolved Per ortho for pain control, wound care, anticoagulation and activities Monitor H&H (hgb of 9 today, pre-op 10.6). Continue incentive spirometry, PT/OT when appropriate Postop hypotension: Resolved with IV fluids, anti hypertensives held. Consider resuming tomorrow Elevated lactic acid: Initially 3.3 --> 2.8 --> 2.3 this morning Downtrending appropriately Will decrease LR to 100ml/hr TIA as per records, spinocerebellar ataxia as per records DM2 on oral meds: Postop hyperglycemia secondary to perioperative steroids Recent outpatient hemoglobin A1c for this month showed good control at 5.9 SSI per protocol DVT Ppx: per primary service Patient seen in collaboration with Dr. So. Please see addendum. Supervising Physician Co-Signing Physician Notes Attending Addendum: care coordinated with SUE Saucedo please refer to her notes for full details, I agree with her notes patient seen and examined, records reviewed by myself as well on exam, patient seen resting in bed, comfortable, in good spirits Right shoulder sore No chest pain, shortness of breath, dizziness, palpitations no other symptoms VS noted and reviewed oriented , not in distress, speaks in sentences with no effort nor accessory muscle use normal rate, regular rhythm, no murmurs clear breath sounds bilaterally non distended, soft, nontender no bipedal edema, erythema, warmth no neuro deficits WBC 9.1 Hg 9.0 Crea 0.82 ASSESSMENT AND PLAN Status post right shoulder arthroplasty Blood pressure improving, continue IV fluids Hold BP meds Elevated lactic acid Trending down, continue IV fluids other diagnoses and plan of care as per SUE Callejas notes Tommy So MD Subjective Patient seen and examined today. Some surgical site discomfort. No chest pain or shortness of breath. Ambulating well. Urinating without issue, passing flatus. No fever, chills, headache, nausea, vomiting, abdominal pain, dysuria, diarrhea. BP improved with IV fluids to 109/62. Review of Systems Review of Systems: At least ten systems reviewed and negative except as noted in the HPI. Physical Exam Physical Exam: General Appearance: WD/WN, no apparent distress, resting comfortably Head: normocephalic, atraumatic Eyes: normal inspection, PERRL, EOMI ENT: hearing grossly normal, pharynx normal (moist mucous membranes) Neck: supple, no JVD, no adenopathy Respiratory/Chest: lungs clear to auscultation. No wheezes, rales or rhonci. No respiratory distress or accessory muscle use Cardiovascular: regular rate, rhythm, no murmur, normal peripheral pulses Abdomen/GI: normal bowel sounds, soft, non-tender to palpation Extremities/Musculoskelatal: R shoulder in sling, distal RUE cap refill intact, strength intact. No calf tenderness, no pedal edema Neurologic/Psych: alert, normal mood/affect, oriented x 3 Skin: normal color, warm/dry Results & Data Vital Signs (Past 12 Hours) Vital Signs Temp Pulse Resp BP Pulse Ox 10/26/18 07:15 36.7 C 63 16 109/62 98 10/26/18 04:07 36.6 C 68 15 109/69 96 10/26/18 02:05 37.1 C 66 15 97/62 L 96 10/25/18 23:36 36.7 C 65 15 92/59 L 96 Laboratory Results Short CBC 10/25/18 10/26/18 10/26/18 Range/Units 21:56 02:03 06:26 WBC 9.10 (4.8-10.8) K/uL Hgb 10.6 L 9.2 L 9.0 L (12.0-16.0) g/dL Hct 32.4 L 27.8 L 27.4 L (37-47) % Plt Count 179 (130-400) K/uL BMP 10/25/18 10/26/18 21:56 06:26 Sodium 140 146 H Potassium 4.7 3.9 D Chloride 108 H 117 H Carbon Dioxide 26 23 BUN 22 H 14 Creatinine 1.19 0.82 D Glucose 287 H 150 H Calcium 8.4 L 7.3 L Liver Function 10/25/18 Range/Units 21:56 Albumin 3.0 L (3.4-5.0) gm/dl Urine 10/26/18 Range/Units 00:00 Urine Color Yellow Urine Appearance Clear (Clear) Urine pH 6.0 (4.5-7.5) Ur Specific [place] 1.015 (1.000-1.030) Urine Protein Negative (Negative) Urine Glucose (UA) Trace H (Negative)
[2018-10-26] MEDS: MIRABEGRON ER 25 MG TAB PO SCH (20:58)
[2018-10-26] MEDS: SENNA 8.6 MG TAB PO SCH (20:59)
[2018-10-26] MEDS: SERTRALINE HCL 50 MG TABLET PO SCH (20:59)
[2018-10-27 02:23] LABS: Hematocrit (blood only) 28.6 % (37-47); Hemoglobin 9.3 g/dL (12.0-16.0); Mean Corpuscular Hgb Conc 32.5 g/dL (32-36); Mean Corpuscular Volume 91.7 fL (80-100); Mean Platelet Volume 11.4 fL (7.4-10.4); Platelet Count 114 K/uL (130-400); RDW Coefficient of Variation 13.3 % (11.5-14.5); RDW Standard Deviation 44.5 fL (36.4-46.3); Red Blood Count 3.12 M/uL (4.2-5.4); White Blood Count 8.99 K/uL (4.8-10.8)
[2018-10-27 02:40] LABS: BUN Creatinine Ratio 14.2 (10-20); Calcium 8.1 mg/dl (8.5-10.1); Creatinine Clr Calc Pharmacy 47.3 ml/min; Est GFR (African American) 86.2; Est GFR (Non-African American) 74.4; Potassium 3.9 mmol/L (3.5-5.1)
[2018-10-27] MEDS: OXYCODONE HCL IR 5 MG TAB (IMMEDIATE RELEASE) PO PRN ×3 (03:08→18:27)
[2018-10-27] MEDS: ACETAMINOPHEN 500 MG TAB PO SCH ×3 (05:45→21:39)
--- NOTE | 2018-10-27 08:12 | Orthopedic Progress Note ---
Date of Service October 27, 2018 Assessment & Plan (1) Status post shoulder surgery: POD #2, Right reversed TSA, Biceps tenodesis Limited PT/ OT D/C planning- Home w HEP today As per medicine. Subjective POD #2, No chest pain or shortness of breath. No fever, chills, headache, nausea, vomiting, abdominal pain, dysuria, diarrhea. BP improved. Pain is controlled well. Physical Exam Physical Exam: Right shoulder incision c/d/i, no erythema, fingers mobile, sling in tact. Confusion resolved this AM, A&Ox3. Results & Data Vital Signs (Past 12 Hours) Vital Signs Temp Pulse Pulse Resp BP Pulse Ox 10/27/ 07:42 36.7 C 75 17 139/84 98 10/26/18 23:22 37.3 C 76 16 165/73 H 93
[2018-10-27] MEDS: MULTIVITAMIN TAB PO SCH (08:48)
[2018-10-27] MEDS: DOCUSATE SODIUM 100 MG CAP PO SCH ×2 (08:48→21:38)
[2018-10-27] MEDS: ATORVASTATIN 10 MG TAB PO SCH (08:48)
[2018-10-27] MEDS: CALCIUM 600MG + VIT D 400 IU TAB PO SCH ×2 (08:48→21:38)
[2018-10-27] MEDS: CLOPIDOGREL BISULFATE 75 MG TAB PO SCH (08:49)
[2018-10-27] MEDS: PANTOprazole 40 MG TAB PO SCH (08:49)
[2018-10-27] MEDS: INSULIN ASPART 100 UNITS/ML 3 ML PEN SC SCH ×4 (09:04→21:24)
[2018-10-27] MEDS: INSULIN GLARGINE SOLOSTAR 100 UNITS/ML 3 ML PEN SQ SCH (09:15)
[2018-10-27] MEDS ORDERED: AMLODIPINE BESYLATE 5 MG TAB PO ONE (10:30)
--- NOTE | 2018-10-27 10:35 | Hospitalist Progress Note ---
Date of Service October 27, 2018 Assessment & Plan (1) Status post shoulder surgery: POD#2 s/p procedure by Dr. Ruth Feeling better today, confusion has resolved Per ortho for pain control, wound care, anticoagulation and activities Monitor H&H stable with hgb of 9.3 today (9 yesterday) Continue incentive spirometry, PT/OT when appropriate Ortho service plans to discharge home today with HEP Postop hypotension --> resolved Resolved with IV fluids Feeling dizzy today with repeat BP 170/90 Resumed home BP meds. Please recheck BP prior to discharge Elevated lactic acid --> resolved Initially 3.3 --> 2.8 --> 2.3 Downtrending appropriately with IV fluids TIA as per records, spinocerebellar ataxia as per records DM2 on oral meds Postop hyperglycemia secondary to perioperative steroids Recent outpatient hemoglobin A1c for this month showed good control at 5.9 SSI per protocol DVT Ppx: per primary service Patient seen in collaboration with Dr. So. Please see addendum. Thank you for this consultation. We will follow the patient with you during their hospital stay. You can reach a member of the [facility] Hospitalist Team 03/11 via pager @ [phone]. Supervising Physician Co-Signing Physician Notes Attending Addendum: delayed entry date of service as noted above care coordinated with SUE Saucedo please refer to her notes for full details, I agree with her notes patient seen and examined, records reviewed by myself as well on exam, patient seen resting in bed, comfortable, in good spirits pain well controlled denies chest pain, dyspnea, dizzines no new symptoms VS noted and reviewed oriented x2 , not in distress, speaks in sentences with no effort nor accessory muscle use normal rate, regular rhythm, no murmurs clear BS bilaterally non distended, soft, nontender sling over right arm no bipedal edema, erythema, warmth no neuro deficits Hg 9.3 ASSESSMENT AND PLAN Status post right shoulder arthroplasty stable overall Elevated lactic acid trended down other diagnoses and plan of care as per SUE Callejas notes Tommy So MD Subjective Patient seen and examined today in 384-1. Surgical site pain has improved. Feels dizzy when sitting up and BP is elevated at 170/90. Will resume BP meds. No chest pain or shortness of breath. Ambulating well. Urinating without issue, passing flatus. No fever, chills, headache, nausea, vomiting, abdominal pain, dysuria, diarrhea. Review of Systems Review of Systems: At least ten systems reviewed and negative except as noted in the HPI. Physical Exam Physical Exam: General Appearance: WD/WN, no apparent distress, resting comfortably Head: normocephalic, atraumatic Eyes: normal inspection, PERRL, EOMI ENT: hearing grossly normal, pharynx normal (moist mucous membranes) Neck: supple, no JVD, no adenopathy Respiratory/Chest: lungs clear to auscultation. No wheezes, rales or rhonci. No respiratory distress or accessory muscle use Cardiovascular: regular rate, rhythm, no murmur, normal peripheral pulses Abdomen/GI: normal bowel sounds, soft, non-tender to palpation Extremities/Musculoskelatal: R shoulder in sling, distal RUE cap refill intact, strength intact. No calf tenderness, no pedal edema Neurologic/Psych: alert, normal mood/affect, oriented x 3 Skin: normal color, warm/dry Results & Data Vital Signs (Past 12 Hours) Vital Signs Temp Pulse Pulse Resp BP Pulse Ox 10/27/18 07:42 36.7 C 75 17 139/84 98 10/26/18 23:22 37.3 C 76 16 165/73 H 93
[2018-10-27] MEDS ORDERED: METOPROLOL SUCC 25MG EXT REL TAB PO ONE (10:45)
[2018-10-27] MEDS: SENNA 8.6 MG TAB PO SCH (21:38)
[2018-10-27] MEDS: MIRABEGRON ER 25 MG TAB PO SCH (21:39)
[2018-10-27] MEDS: SERTRALINE HCL 50 MG TABLET PO SCH (21:39)
[2018-10-28] MEDS: ACETAMINOPHEN 500 MG TAB PO SCH ×3 (05:30→21:15)
[2018-10-28] MEDS: OXYCODONE HCL IR 5 MG TAB (IMMEDIATE RELEASE) PO PRN ×3 (06:23→20:02)
[2018-10-28] MEDS: INSULIN ASPART 100 UNITS/ML 3 ML PEN SC SCH ×4 (09:01→21:14)
[2018-10-28] MEDS: INSULIN GLARGINE SOLOSTAR 100 UNITS/ML 3 ML PEN SQ SCH (09:01)
[2018-10-28] MEDS: DOCUSATE SODIUM 100 MG CAP PO SCH ×2 (09:02→20:05)
[2018-10-28] MEDS: PANTOprazole 40 MG TAB PO SCH (09:02)
[2018-10-28] MEDS: CLOPIDOGREL BISULFATE 75 MG TAB PO SCH (09:02)
[2018-10-28] MEDS: MULTIVITAMIN TAB PO SCH (09:02)
[2018-10-28] MEDS: CALCIUM 600MG + VIT D 400 IU TAB PO SCH ×2 (09:02→20:05)
[2018-10-28] MEDS: ATORVASTATIN 10 MG TAB PO SCH (09:02)
--- NOTE | 2018-10-28 12:00 | Orthopedic Progress Note ---
Date of Service October 28, 2018 Assessment & Plan (1) Status post shoulder surgery: 73 yo female stable POD #3 s/p right reverse TSA 1. Med management 2. DVT prophylaxis- SCDs 3. PT/OT 4. D/C planning- referral made to [facility] Subjective Pt resting in bed, pain controlled, denies complaints Physical Exam Physical Exam: Dressing intact, fingers mobile, NVI Results & Data Vital Signs (Past 12 Hours) Vital Signs Temp Pulse Resp BP Pulse Ox 10/28/18 07:36 37.1 C 80 16 126/76 91 Laboratory Results 10/28/18 10/27/18 10/27/18 Range/Units 08:03 20:39 17:17 POC Glucose 193 H 192 H 181 H (70-99) 10/27/18 Range/Units 12:08 POC Glucose 169 H (70-99)
[2018-10-28] MEDS ORDERED: ACETAMINOPHEN 500 MG TAB PO PRN (16:58)
--- NOTE | 2018-10-28 17:14 | XRay Report ---
SINGLE VIEW CHEST CLINICAL HISTORY: Dyspnea. FINDINGS: An AP, portable, upright chest radiograph is compared to study dated 10/18/2018. The examinat ion is degraded by portable technique and patient rotation. The cardiomediastinal silhouette is unre markable. The lungs and pleural spaces are clear. No pneumothorax is seen. The skeletal structures ar e osteopenic. The bony thorax is grossly intact. Degenerative change is noted throughout the thoracic spine. A right shoulder arthroplasty is new from previous. There is overlying soft tissue edema and skin clips. Cholecystectomy clips are seen in the right upper quadrant. IMPRESSION: No active disease in the chest. Electronically signed by: Lj Rodriguez M.D. 10/28/2018 5:13 PM
[2018-10-28 18:16] LABS: Appearance Urine Clear (Clear); Bilirubin Urine Negative (Negative); Blood Urine Negative (Negative); Color Urine Yellow; Glucose Urine UA Negative (Negative); Ketones Urine Negative (Negative); Leukocyte Esterase Urine Negative (Negative); Nitrite Urine Negative (Negative); Protein Urine Negative (Negative); Specific Gravity Urine 1.014 (1.000-1.030); Urobilinogen Urine Negative (Negative); pH Urine 6.5 (4.5-7.5)
--- NOTE | 2018-10-28 19:17 | Hospitalist Progress Note ---
Date of Service October 28, 2018 Assessment & Plan (1) Status post shoulder surgery: POD#3 s/p procedure by Dr. Ruth Blood pressure stable overall Hemoglobin stable at 9.3 Positive febrile episode this afternoon No clear focus of infection, will order chest x-ray, urinalysis, blood cultures x2 Monitor fever curve Postop hypotension --> resolved Resolved with IV fluids Usual blood pressure medications resumed, blood pressure stable overall Elevated lactic acid --> resolved Initially 3.3 --> 2.8 --> 2.3 TIA as per records, spinocerebellar ataxia as per records DM2 on oral meds Postop hyperglycemia secondary to perioperative steroids Recent outpatient hemoglobin A1c for this month showed good control at 5.9 SSI per protocol DVT Ppx: per primary service Thank you for this consultation. We will follow the patient with you during their hospital stay. You can reach a member of the [facility] Hospitalist Team 03/11 via pager @ [phone]. Subjective Follow-up for status post right shoulder surgery, episode of hypotension Patient's at the bedside Alert, nondistressed Reports discomfort in the right shoulder, relieved by analgesics as needed Denies headache, shortness of breath, chest pain, dizziness, nausea No other symptoms Review of Systems 2 Review of Systems: All systems reviewed & are unremarkable except as noted in HPI & below Physical Exam Physical Exam: General- oriented x 3, not in distress, speaks in sentences with no effort or accessory muscle use Eyes- anicteric Neck- no JVD Lungs- clear BS, bilaterally, no crackles or wheezing Heart- normal rate, regular rhythm; no murmurs Abdomen- normal bowel sounds, nondistended, soft, nontender Extremities- no pretibial edema, no calf tenderness Sling in place on the right arm Neuro- alert, oriented; no gross focal neurologic deficits Skin- warm & dry Results & Data Vital Signs (Past 12 Hours) Vital Signs Temp Pulse Resp BP Pulse Ox 10/28/18 15:58 37.7 C H 137/75 10/28/18 15:47 38.1 C H 80 17 148/81 H 93 10/28/18 07:36 37.1 C 80 16 126/76 91 Laboratory Results Laboratory Results - last 24 hr 10/27/18 10/28/18 10/28/18 20:39 08:03 11:55 POC Glucose 192 H 193 H 194 H Urine Color Urine Appearance Urine pH Ur Specific [place] Urine Protein Urine Glucose (UA) Urine Ketones Urine Blood Urine Nitrite Urine Bilirubin Urine Urobilinogen Ur Leukocyte Esterase 10/28/18 10/28/18 17:30 Unknown POC Glucose 129 H Urine Color Yellow Urine Appearance Clear Urine pH 6.5 Ur Specific [place] 1.014 Urine Protein Negative Urine Glucose (UA) Negative Urine Ketones Negative Urine Blood Negative Urine Nitrite Negative Urine Bilirubin Negative Urine Urobilinogen Negative Ur Leukocyte Esterase Negative
[2018-10-28 20:06] LABS: Basophils # (auto) 0.01 K/uL (0-0.2); Basophils % (auto) 0.1 %; Eosinophils # (auto) 0.22 K/uL (0-0.5); Eosinophils % (auto) 2.9 %; Hematocrit (blood only) 26.1 % (37-47); Hemoglobin 8.5 g/dL (12.0-16.0); Immature Granulocytes # (auto) 0.02 K/uL (0.00-0.02); Immature Granulocytes % (auto) 0.3 %; Lymphocytes # (auto) 1.48 K/uL (1.2-3.4); Lymphocytes % (auto) 19.4 %; Mean Corpuscular Hgb Conc 32.6 g/dL (32-36); Mean Corpuscular Volume 92.2 fL (80-100); Mean Platelet Volume 10.5 fL (7.4-10.4); Monocytes # (auto) 0.69 K/uL (0.11-0.59); Neutrophils # (auto) 5.21 K/uL (1.4-6.5); Neutrophils % (auto) 68.3 %; Platelet Count 172 K/uL (130-400); RDW Coefficient of Variation 13.3 % (11.5-14.5); RDW Standard Deviation 44.8 fL (36.4-46.3); Red Blood Count 2.83 M/uL (4.2-5.4); White Blood Count 7.63 K/uL (4.8-10.8)
[2018-10-28] MEDS: SENNA 8.6 MG TAB PO SCH (20:06)
[2018-10-28] MEDS: MIRABEGRON ER 25 MG TAB PO SCH (20:06)
[2018-10-28] MEDS: SERTRALINE HCL 50 MG TABLET PO SCH (20:07)
[2018-10-28 20:11] LABS: BUN Creatinine Ratio 17.1 (10-20); Calcium 8.5 mg/dl (8.5-10.1); Creatinine Clr Calc Pharmacy 40.5 ml/min; Est GFR (African American) 71.5; Est GFR (Non-African American) 61.7; Potassium 3.5 mmol/L (3.5-5.1)
[2018-10-29] MEDS: ACETAMINOPHEN 500 MG TAB PO SCH ×2 (05:35→13:55)
[2018-10-29] MEDS: OXYCODONE HCL IR 5 MG TAB (IMMEDIATE RELEASE) PO PRN ×3 (07:52→16:38)
[2018-10-29] MEDS: CALCIUM 600MG + VIT D 400 IU TAB PO SCH (08:35)
[2018-10-29] MEDS: DOCUSATE SODIUM 100 MG CAP PO SCH (08:36)
[2018-10-29] MEDS: ATORVASTATIN 10 MG TAB PO SCH (08:36)
[2018-10-29] MEDS: CLOPIDOGREL BISULFATE 75 MG TAB PO SCH (08:37)
[2018-10-29] MEDS: MULTIVITAMIN TAB PO SCH (08:37)
[2018-10-29] MEDS: PANTOprazole 40 MG TAB PO SCH (08:38)
[2018-10-29] MEDS: INSULIN ASPART 100 UNITS/ML 3 ML PEN SC SCH ×3 (09:11→16:40)
[2018-10-29] MEDS: INSULIN GLARGINE SOLOSTAR 100 UNITS/ML 3 ML PEN SQ SCH (09:16)
--- NOTE | 2018-10-29 13:40 | Progress Note ---
DATE: 10/29/2018 SUBJECTIVE: The patient is currently awake and alert and is sitting up, eating lunch. She has no complaints at this time and appears comfortable. OBJECTIVE: Incision is clean, dry and intact and a dressing is reapplied. She is moving all the fingers of her right hand quite well and states she has a little bit of numbness in the index and middle finger at this time. She has good wrist range of motion with flexion and extension and again has good flexion and extension of her fingers at this time. ASSESSMENT: Postoperative day #3 status post right reverse total shoulder arthroplasty by Dr. Ruth. PLAN: Continue current DVT prophylaxis and pain management. She would not be needing any organized PT at this point in time due to her reverse shoulder arthroplasty. Plans will be for [facility]. I have discussed the case with Dr. So who has been following her for [facility] during her stay and he states that she is medically stable for discharge. We will plan on discharging her to her SNF today. ROB
--- NOTE | 2018-10-30 07:38 | Hospitalist Progress Note ---
Date of Service delayed entry date of service 10/29/18 October 30, 2018 Assessment & Plan (1) Status post shoulder surgery: s/p procedure by Dr. Ruth Positive febrile episode previous day, afebrile since, feels fine overall No focus of infection identified clinically, also with labs so far chest x-ray, urinalysis: unrevealing blood cultures x2: pending, will follow no contraindication for discharge Postop hypotension --> resolved Resolved with IV fluids Usual blood pressure medications resumed, blood pressure stable overall Elevated lactic acid --> resolved Initially 3.3 --> 2.8 --> 2.3 TIA as per records, spinocerebellar ataxia as per records DM2 on oral meds Postop hyperglycemia secondary to perioperative steroids Recent outpatient hemoglobin A1c for this month showed good control at 5.9 SSI per protocol DVT Ppx: per primary service Thank you for this consultation. We will follow the patient with you during their hospital stay. You can reach a member of the [facility] Hospitalist Team 03/11 via pager @ [phone]. Subjective ff up for s/p r shoulder surgery seen resting in bed, comfortable, smiling, in good spirits states she feels fine overall denies chills, cough, headache, dizziness, dyspnea, abdominal pain, changes with urination or BMs no other symptoms states she is ready for discharge Review of Systems Review of Systems: All systems reviewed & are unremarkable except as noted in HPI & below Physical Exam Physical Exam: General- oriented x 2, not in distress, speaks in sentences with no effort or accessory muscle use Eyes- anicteric Neck- no JVD Lungs- clear BS , no crackles BL Heart- normal rate, regular rhythm; no murmurs Abdomen- normal bowel sounds, nondistended, soft, nontender Extremities- no pretibial edema, no calf tenderness R arm- sling in place Neuro- alert, oriented x 2; no gross focal neurologic deficits Skin- warm & dry Results & Data Laboratory Results all noted and reviewed
--- NOTE | 2018-11-11 18:06 | Discharge Summary ---
This is a 73-year-old female patient of Dr. Ruth's complaining of chronic right shoulder pain, longstanding, now progressively getting worse. The patient has had multiple falls in the recent year. MRI has confirmed rotator cuff tendinopathy. The patient wished to proceed with a right reversed total shoulder arthroplasty and biceps tenodesis. PAST MEDICAL HISTORY: Hypertension, anxiety, history of a TIA, spine problems, neck problems, acid reflux, and diabetes mellitus. POSTOPERATIVE COURSE: The patient underwent a right reverse total shoulder arthroplasty, biceps tenodesis and removal of loose bodies on 10/25/2018. Postoperatively, she was followed closely with medical consultation, pain control and limited physical therapy. She did have some confusion and possible encephalopathy. On postoperative day 1, she was hypotensive, additional fluids were added and this did resolve. Her lactic acid was also increased, which could have been a contributor to her encephalopathy. This did resolve as well as. It went from 3.3-2.3 on discharge. The patient did become febrile on 10/28/2018. Chest x-ray, blood cultures and urinalysis were all negative. This also did normalize on discharge. PHYSICAL EXAMINATION: Right shoulder incision was clean, dry and intact. Denice were intact. Skin edges approximated well. There was no redness or drainage. Her fingers were mobile. Sling was intact. Neurologically and neurovascularly she was intact in her right upper extremity. DIAGNOSES: Right shoulder reverse total shoulder arthroplasty, biceps tenodesis, removal of loose body with a history of anxiety, hypertension, diabetes mellitus, spine problems, neck problems, and acid reflux. She did have postoperative encephalopathy and hypotension which were resolved both with fluids and lactic acid control. She did have a postoperative febrile. No concerns with chest x-ray, blood cultures, or urinalysis and all did resolve on discharge. PLAN: The patient was discharged home on postoperative day #3 with limited home exercise program. She will continue her preadmission medications with the addition of pain medications. She will follow up with her family physician within the next 1-2 weeks for her postoperative complications. She will follow up with Dr. Ruth as scheduled as an outpatient.
== END 2018-10-29 16:50 | DRG 483 ==
LOC: ASU 08:44 → 3N 14:59
DX: R29.6 Repeated falls; Z79.84 Long term (current) use of oral hypoglycemic drugs; F32.9 Major depressive disorder, single episode, unspecified; E11.9 Type 2 diabetes mellitus without complications; I95.81 Postprocedural hypotension; M19.011 Primary osteoarthritis, right shoulder; Z88.0 Allergy status to penicillin; K21.9 Gastro-esophageal reflux disease without esophagitis; Z86.73 Personal history of transient ischemic attack (TIA), and cerebral infarction without residual deficits; G93.40 Encephalopathy, unspecified; I10 Essential (primary) hypertension; F41.9 Anxiety disorder, unspecified; D62 Acute posthemorrhagic anemia